=== PATIENT | male | born 2000 | race Caucasian/White ===

== ENCOUNTER 2022-10-31 23:03 | Emergency (ER) | payer OTHER, SELFPAY ==
[2022-10-31 23:02] VITALS: BP 155/93; PULSE 104; RESP 22; TEMP 37.1; O2SAT 100
[2022-10-31 23:24] VITALS: PULSE 94; RESP 19; O2SAT 100
--- NOTE | 2022-10-31 23:29 | ED.ALCOHOL ---
HPI - Alcohol General Chief Complaint: Alcohol Stated Complaint: etoh withdrawal Time Seen by Provider: 10/31/22 23:04 History of Present Illness HPI narrative: Patient is a 22-year-old male here for evaluation of nausea, anxiety, tremors and pins and needle sensation in his hands over the past day. Patient states that he has heavy alcohol use, drinking nearly a pint of vodka a day for the past 3 days. His last drink was this morning was 2-3 vodka shooters. He does have a history of EtOH withdrawals but has never had a seizure. No daily use prior to this weekend. He has never required hospitalization in the past. He reports nausea but no vomiting. No abdominal pain, fevers, chills. MD complaint: alcohol withdrawal Last drink: hours (ago) (12) Chronic alcohol use: Yes Previous visits for alcohol intoxication: Yes Recent trauma: No Associated symptoms: nausea, vomiting and tremors Treatments prior to arrival: none Related Data Allergies Allergy/AdvReac Type Severity Reaction Status Date / Time cefdinir [From Omnicef] Allergy Rash Verified 10/31/22 23:25 Review of Systems Review of Systems: Gen.: Reports tremors Eyes: Denies eye pain or visual change ENT: Denies congestion Respiratory: Denies shortness of breath or cough CV: Denies chest pain or palpitations GI: Denies abdominal pain nausea, emesis or diarrhea denies burning, urgency, frequency or hematuria Musculoskeletal: Denies back pain or muscle pain Neuro: Denies numbness, tingling, weakness or focal weakness Skin: Denies rash Except as documented, all other systems reviewed and negative Exam Narrative: APPEARANCE: Well appearing, no pain in distress, well-nourished. Head: Normocephalic and atraumatic. EYES: PERRLA/EOMI, conjunctivae clear NOSE: No nasal drainage EARS: External ear normal in appearance THROAT: Oropharynx is clear. Mucous membranes are moist. NECK: Supple. No adenopathy, no masses. RESPIRATORY: Airway patent, respirations nonlabored. Clear to auscultation bilaterally, no rales, rhonchi, wheezing. CARDIOVASCULAR: tachycardic. Regular rhythm without murmurs, rubs, or gallops. ABDOMINAL: Normoactive bowel sounds. Soft, nontender, nondistended. No rebound tenderness or guarding. MUSCULOSKELETAL: Extremities are warm and well-perfused. Moves all extremities well. No edema. NEURO: Normal speech. No focal neurologic deficits. SKIN: Skin is warm and dry. No rashes. PSYCHIATRIC: Normal affect/mood. Course Vital Signs Vital signs: Vital Signs Temperature 98.8 F 10/31/22 23:02 Pulse Rate 104 H 10/31/22 23:02 Respiratory Rate 22 H 10/31/22 23:02 Blood Pressure 155/93 H 10/31/22 23:02 Pulse Oximetry 100 10/31/22 23:02 Oxygen Delivery Room Air 10/31/22 23:02 Temperature 98.8 F 10/31/22 23:02 Pulse Rate 120 H 11/01/22 02:30 Respiratory Rate 17 11/01/22 02:30 Blood Pressure 167/100 H 11/01/22 02:30 Pulse Oximetry 100 11/01/22 02:15 Oxygen Delivery Room Air 10/31/22 23:02 MDM - Alcohol MDM Narrative Medical decision making narrative: 22-year-old male here for evaluation of symptoms he likens to alcohol withdrawal including anxiety, tremors, nausea. Reports heavy alcohol use over the past weekend but denies daily use of alcohol prior to that. Patient is slightly tremulous on examination, initial CIWA is 15. No abdominal tenderness on exam. Patient's initial labs are drawn from evaluation where he was receiving fluids so feel these are very inaccurate. Labs were repeated shortly afterwards without any intervention and were very reassuring. Alcohol is 49. Normal LFTs and lipase. His lactic is slightly up at 3.8. He was given 2 L of fluids, banana bag, IV Ativan and he feels much better. Repeat CIWA is 3. Shared decision-making was used with patient who elected for outpatient management and follow-up. We will send home with [place] [place]. Emphasized importance of abstinence from alcohol if he uses the [facility]
[2022-10-31 23:30] VITALS: PULSE 94; RESP 18; O2SAT 100
[2022-10-31] MEDS: LACTATED RINGERS 1,000 ML 999 ML IV CONT (23:30)
[2022-10-31] MEDS: LORazepam INJ (*CRX) 2 MG/ML VIAL 1 MG IV PUSH (23:30)
[2022-10-31 23:31] VITALS: BP 157/96; PULSE 87; RESP 19; O2SAT 100
[2022-10-31 23:32] VITALS: PULSE 84; RESP 16; O2SAT 100
[2022-10-31 23:45] VITALS: PULSE 83; RESP 14
[2022-10-31 23:46] LABS: Eosinophils Percent Auto 0.2 % (0-4.4); Immature Granulocyte Absolute 0.01 K/mm3 (0.00-0.031); Immature Granulocyte Percent A 0.2 % (0-0.5); Lymphocytes Absolute Auto 1.03 K/mm3 (0.9-3.2); Mean Corpuscular HGB Conc 33.5 g/dl (32-36); Mean Corpuscular Hemoglobin 30.2 pg (26-34); Mean Corpuscular Volume 90.1 fl (80-100); Monocytes Absolute Auto 0.4 K/mm3 (0.1-0.6); Monocytes Percent Auto 8.5 % (2.6-8.5); Neutrophils Absolute Auto 2.7 K/mm3 (1.3-6.7); Neutrophils Percent Auto 66.1 % (45.5-73.1); Platelet Count Result 116 k/mm3 (150-375); Red Blood Count 2.02 M/mm3 (4.6-6.20); Red Cell Distribution Width 12.5 % (11.5-14.5); White Blood Count 4.1 K/mm3 (4.5-10.0)
[2022-10-31 23:53] LABS: Hematocrit 18.2 % (42.0-52.0); Hemoglobin 6.1 g/dL (14.0-18.0)
[2022-10-31 23:56] LABS: Magnesium 0.9 mg/dL (1.6-2.3)
[2022-11-01] VITALS (10 sets, daily range): BP systolic 146–172; BP diastolic 88–100; PULSE 85–123; RESP 9–24; O2SAT 94–100
[2022-11-01] MEDS: LORazepam INJ (*CRX) 2 MG/ML VIAL IV PUSH (00:08)
[2022-11-01 00:23] LABS: Hematocrit 38.6 % (42.0-52.0); Hemoglobin 13.7 g/dL (14.0-18.0)
[2022-11-01] MEDS: MAGNESIUM SULF 4 GM/WATER100ML 4 GM/100 ML BAG IVPB (00:24)
[2022-11-01] MEDS: THIAMINE HCL INJ 100 MG, FOLIC ACID INJ 1 MG, MULTIVITAMINS-12 INJ VIAL 1 5 ML, MULTIVI... IV CONT (00:35)
[2022-11-01 00:38] LABS: INR 1.1; Prothrombin Time 14.1 Seconds (11.1-14.7)
[2022-11-01 00:39] LABS: Partial Thromboplastin Time 23.7 SECONDS (22.3-36.8)
[2022-11-01 00:57] LABS: Lactic Acid Reflex 18.1 mmol/L (0.7-2.0)
[2022-11-01 01:10] LABS: Appearance Urine Clear (Clear); Bilirubin Urine Negative (Negative); Blood Urine Trace-intact (Negative); Color Urine Yellow (Yellow); Glucose Urine UA Negative (Negative); Ketones Urine 4+ mg/dL (Negative); Leukocyte Esterase Ur Negative LEU/UL (Negative); Nitrate Urine Negative (Negative); Protein Urine 3+ mg/dL (Negative); Urobilinogen Urine 0.2 mg/dL (<2.0); pH Urine 7.5 (5.0-9.0)
[2022-11-01 01:18] LABS: Ethanol 49 mg/dL (<10)
[2022-11-01 01:19] LABS: Bacteria Urine Trace /hpf; Mucus Urine Rare /lpf; WBC Urine 0-3 /hpf
[2022-11-01 01:20] LABS: Add Urine Microscopic? YES
[2022-11-01 01:54] LABS: Lactic Acid Reflex 3.8 mmol/L (0.7-2.0)
[2022-11-01 02:05] LABS: Amphetamine Screen Urine Negative (Negative); Barbiturate Screen Urine Negative (Negative); Benzodiazepines Screen Urine Negative (Negative); Cannabinoid Screen Urine Positive (Negative); Cocaine Screen Urine Positive (Negative); Methadone Screen Urine Negative (Negative); Opiate Screen Urine Negative (Negative); Phencyclidine Screen Urine Negative (Negative)
[2022-11-01 02:06] LABS: Alanine Aminotransferase 36 U/L (6-50); Albumin Level 4.5 g/dL (3.5-5.1); Alkaline Phosphatase 70 U/L (38-126); Anion Gap 11 mmol/L (8-16); Aspartate Amino Transferase 58 U/L (17-59); Blood Urea Nitrogen 15 mg/dL (9-20); Carbon Dioxide 23 mmol/L (22-30); Chloride 102 mmol/L (98-107); Estimated CRCL calculation 95 ml/min; Estimated Glomerular Filt Rate > 60; Glucose 96 mg/dL (65-110); Lipase 121 U/L (23-300); Sodium 136 mmol/L (137-145)
[2022-11-01 02:44] LABS: Reflex Lactic Acid Yes or No Add Lactic
[2022-11-01] MEDS: ONDANSETRON INJ 4 MG/2 ML VIAL IV PUSH (03:02)
== END 2022-11-01 03:37 | disposition home or self-care (01) ==
PROVIDERS: Emergency Medicine; Emergency Provider Physician Assistant; PCP Emergency Medicine
DX: F10.239 Alcohol dependence with withdrawal, unspecified (principal); Y90.2 Blood alcohol level of 40-59 mg/100 ml
CPT/HCPCS: 36415; 80053; 80307; 81001; 83605; 83690; 83735; 85014; 85018; 85025; 85610; 85730; 86850; 86900; 86901; 96361; 96365; 96366; 96368; 96374; 96375; 99284; J2060; J2405; J3411; J3475; J7030; J7120